=== PATIENT | female | born 1970 | race Caucasian/White ===

== ENCOUNTER → 2019-01-15 14:01 | Outpatient (CLI) | payer BC ==
--- NOTE | 2019-01-21 08:48 | EC ---
PATIENT:REGULO AMES DATE OF SERVICE: 01/15/19 SEX: F MEDICAL RECORD: [id number] DATE OF : [birth year] LOCATION:[facility] AGE OF PATIENT: 48 ADMISSION DATE: 01/15/19 REFERRING PHYSICIAN: INTERPRETING PHYSICIAN: ARTEM RODRIGUEZ MD ECHOCARDIOGRAM REPORT ECHO CHARGES 4 ECHO COMPLETE Date: 01/15/19 CLINICAL DIAGNOSIS: SYSTOLIC MURMUR, CHEST PAIN ECHOCARDIOGRAPHIC MEASUREMENTS (adult normal given) AC root (d.<3.7cm) 3.1 cm LV Septum d (<1.2 cm> 0.90 cm Valve Excursion 1.2 cm LV Septum (systole) 1.0 cm Left Atria (s.<4.0cm> 2.9 cm LVPW d(<1.2cm) 0.9 cm RV (d.<2.3cm) 3.4 cm LVPW (sytole) 1.4 cm LV diastole(<5.6CM) 4.6 cm MV E-F(>70mm/sec) cm LV systole 3.1 cm LVOT Diameter 1.8 cm MV exc.(>10mm) 1.3 cm Est.ejection fraction (50-75%) % DOPPLER: LVIT cm/sec A 69.0 cm/sec E 84.0 cm/sec LA cm/sec RVSP 19 mmHg LVOT 110 cm/sec AOP1/2T m/s Asc. Ao 126 cm/sec RVOT 76 cm/sec RA cm/sec PA 83 cm/sec AV Gradient Peak 6.37 mmHg AV Mean 3.25 mmHg AV Area 2.4 cm MV Gradient Peak 3.10 mmHg MV Mean 1.33 mmHg MV Area cm COMMENTS: Managing Member: Michelle HERNANDEZ Jeeper Operator: 3 Dr. Holder TAPE# PACS Pericardial Effusion N DATE OF SERVICE: 01/15/2019 No LVH. LV internal dimensions are normal. Wall motion is normal. EF is greater than or equal to 55%. Aortic valve is tricuspid. No evidence of stenosis by Doppler interrogation. Left atrium is normal. Mitral valve shows no prolapse. Physiologic MR. Right-sided chamber is normal. Physiologic TR. TRANSINT:[id number] Voice Confirmation ID: [id number] DOCUMENT ID: [id number] ECHOCARDIOGRAM REPORT [id number] REGULO AMES ARTEM RODRIGUEZ MD at 0848 CC: [id number] DICTATION DATE: 01/16/19 1409 SCANNER OPERATOR: 01/16/199 DEP CLI 01/15/19 [id number] [place] [address]
--- NOTE | 2019-01-21 08:48 | ST ---
PATIENT:REGULO AMES MEDICAL RECORD: [id number] SEX: F LOCATION:[facility] ORDER #: ADMISSION DATE: 01/15/19 AGE OF PATIENT: 48 REFERRING PHYSICIAN: INTERPRETING PHYSICIAN: ARTEM RODRIGUEZ MD DATE OF SERVICE: 01/15/2019 PROCEDURE: Treadmill stress test. Baseline ECG is normal. Exercised for 10 minutes on Marcos protocol. Maximum heart rate 164 beats per minute, greater than 85% maximum predicted. No ECG changes for ischemia. No symptoms of ischemia. Normal blood pressure response to exercise. No arrhythmias noted. Good exercise tolerance for age. TRANSINT:[id number] Voice Confirmation ID: [id number] DOCUMENT ID: [id number] ARTEM RODRIGUEZ MD at 0848 CC: [id number] DICTATION DATE: 01/16/19 1359 DIE REAMER: 01/16/19 1505 DEP CLI 01/15/19 [id number] [place] [address]
== END | disposition home or self-care (01) ==
LOC: D.HCCECHO 14:01
PROVIDERS: ATTEND Internal Medicine Interventional Cardiology
DX: R01.1 Cardiac murmur, unspecified (principal); R07.9 Chest pain, unspecified

== ENCOUNTER 2019-06-30 22:39 | Emergency (ER) | payer BC ==
[~2019-06-30] VITALS: Ht 160 cm; Wt 51.8 kg
[2019-06-30 23:11] VITALS: Ht 160 cm; Wt 51.8 kg
[2019-07-01] MEDS ORDERED: KEFLEX500 MG PO (00:14)
[2019-07-01 00:54] VITALS: BP 132/77
== END 2019-07-01 01:52 | disposition home or self-care (01) ==
LOC: D.ER 22:39
DX: S61.212A Laceration without foreign body of right middle finger without damage to nail, initial encounter (principal); W25.XXXA Contact with sharp glass, initial encounter; Y93.9 Activity, unspecified; Y92.9 Unspecified place or not applicable

== ENCOUNTER 2019-10-26 01:35 | Emergency (ER) | payer BC ==
[~2019-10-26] VITALS: Ht 160 cm; Wt 53.2 kg
[~2019-10-26 01:35] MED LIST: KEFLEX500 MG PO
[2019-10-26 01:41] VITALS: Ht 160 cm; Wt 53.2 kg
[2019-10-26] MEDS ORDERED: [UNRECOGNIZED DRUG - REMARK] (01:43)
[2019-10-26 02:05] LABS: BASOPHILS 0.4 % (0-2); EOSINOPHILS 2.6 % (0-7); HEMOGLOBIN 15.9 g/dL (12-16); IMMATURE GRANULOCYTES 0.4 % (0-5); LYMPHOCYTES 13.9 % (15-50); MCH 31.9 pg (26.0-34.0); MCHC 33.1 g/dL (31.0-37.0); MCV 96.2 fL (80.0-100.0); MEAN PLATELET VOLUME 10.4 fL (7.4-10.4); MONOCYTES 10.9 % (2-11); NEUTROPHILS 71.8 % (40-80); PLATELET COUNT 227 10x3/uL (130-400); RBC 4.99 10x6/uL (4.00-5.40); RDW 13.7 % (11.5-14.5)
[2019-10-26 02:12] LABS: ANION GAP 9.5 mmol/L (8-16); CALCIUM 9.5 mg/dL (8.5-10.1); CARBON DIOXIDE 30.5 mmol/L (21.0-32.0); CREATININE - SERUM 1.2 mg/dL (0.6-1.3)
[2019-10-26 02:18] LABS: ALBUMIN 4.2 g/dL (3.4-5.0); BILIRUBIN - TOTAL 0.37 mg/dL (0.2-1.3); PROTEIN - SERUM 7.6 g/dL (6.4-8.2)
[2019-10-26 03:32] LABS: BILIRUBIN NEGATIVE (NEGATIVE); KETONE NEGATIVE (NEGATIVE); NITRITE NEGATIVE (NEGATIVE); UROBILINOGEN NORMAL (NORMAL)
[2019-10-26] MEDS ORDERED: CIPRO500 MG PO (03:43)
[2019-10-26] MEDS ORDERED: ZOFRAN ODT4 MG/UDTAB PO (03:43)
[2019-10-26] MEDS ORDERED: LOMOTIL 2.5-0.1 EAC1 PO (03:43)
[2019-10-26] MEDS ORDERED: FLAGYL500 MG PO (03:43)
[2019-10-26 03:54] VITALS: BP 118/60
== END 2019-10-26 03:54 | disposition home or self-care (01) ==
LOC: D.ER 01:35
PROVIDERS: Family Medicine
DX: K52.9 Noninfective gastroenteritis and colitis, unspecified (principal); R11.2 Nausea with vomiting, unspecified; R10.9 Unspecified abdominal pain